=== PATIENT | male | born 1985 | race African-American/Black ===

== ENCOUNTER 2017-04-27 21:35 | Emergency (ER) | payer SELFPAY ==
[2017-04-27 21:51] VITALS: BP 144/85
== END 2017-04-27 23:40 | disposition left against medical advice (07) ==
LOC: ER 21:35
DX: Z53.21 Procedure and treatment not carried out due to patient leaving prior to being seen by health care provider (principal)

== ENCOUNTER 2018-06-29 07:03 | Day surgery (SDC) | payer BC ==
[2018-06-28 09:36] LABS: HEMOGLOBIN 15.2 g/dL (13.5-17.0); MEAN CORPUSCULAR HEMOGLOBIN 32.8 pg (27.0-33.4); MEAN CORPUSCULAR HGB CONC 34.6 g/dL (32.0-36.0); MEAN CORPUSCULAR VOLUME 95 fl (80-97); PLATELET COUNT 253 10^3/uL (150-450); RED BLOOD COUNT 4.64 10^6/uL (4.35-5.55); RED CELL DISTRIBUTION WIDTH 13.1 % (11.5-14.0); WHITE BLOOD COUNT 6.8 10^3/uL (4.0-10.5)
[~2018-06-29 07:03] MED LIST: ACETAMINOPHEN 325 MG TABLET PO PRN; CEFAZOLIN 2 GM/D5W RTU 2 GM/50 ML RTUPB IV PRN; LACTATED RINGERS 1000 ML IV PRN; LIDOCAINE 0.5% INJ-PF (5 MG/ML) 50 ML SDV SUBCUT PRN
[2018-06-29] MEDS ORDERED: BUPIVACAINE HCL 0.25 % INJ/PF (2.5 MG/1 ML) 30 ML VIAL ONE (07:16)
[2018-06-29] MEDS ORDERED: FENTANYL CITRATE INJ/PF 100 MCG/2 ML AMPUL ONE (08:52)
[2018-06-29] MEDS ORDERED: MIDAZOLAM 2 MG/2 ML INJ ONE (08:52)
[2018-06-29] MEDS ORDERED: PROPOFOL INJ 200 MG/20 ML VIAL IV ONE (08:52)
[2018-06-29] MEDS ORDERED: ONDANSETRON HCL INJ/PF 4 MG/2 ML SDV ONE (08:52)
[2018-06-29] MEDS ORDERED: ACETAMINOPHEN 1,000 MG/100 ML RTUPB IV ONE (08:52)
[2018-06-29] MEDS ORDERED: DEXAMETHASONE SOD PHOSPHATE INJ 4 MG/1 ML VIAL ONE (08:52)
[2018-06-29] MEDS ORDERED: HYDROMORPHONE HCL INJ/PF 2 MG/ML AMPULE ONE (08:53)
[2018-06-29] MEDS ORDERED: MORPHINE SULFATE 10 MG/ML INJ IV PRN (09:48)
[2018-06-29] MEDS ORDERED: DIPHENHYDRAMINE HCL 50 MG/ML VIAL IV PRN (09:48)
[2018-06-29] MEDS ORDERED: MEPERIDINE HCL/PF INJ 25 MG/1 ML DISP.SYRIN IV PRN (09:48)
[2018-06-29] MEDS ORDERED: PROMETHAZINE HCL INJ 25 MG/1 ML VIAL IV PRN (09:48)
[2018-06-29] MEDS ORDERED: FENTANYL CITRATE INJ/PF 100 MCG/2 ML AMPUL IV PRN ×3 (09:48)
--- NOTE | 2018-06-29 10:52 | Discharge Summary ---
Discharge Summary (SDC) - Discharge Final Diagnosis: Left indirect inguinal hernia Date of Surgery: 06/29/18 Discharge Date: 06/29/18 Condition: Stable Treatment or Instructions: Discharge home. Diet as tolerated. Activity: No lifting greater than 10 pounds 4 weeks. Follow-up with [facility] in 7-10 days. Okay to shower starting Tuesday. No tub baths or swimming pools 2 weeks. [place] 10/325 mg p.o. every 6 hours as needed pain. Discharge Diet: As Tolerated Respiratory Treatments at Home: Deep Breathing/Coughing, Incentive Spirometer Discharge Activity: No Lifting Over 10 Pounds Home Care Assistance: None Needed Report the Following to Your Physician Immediately: Shortness of Breath, Nausea , Vomiting, Increase in Pain, Fever over 101 Degrees, Unusual Bleeding, Redness , Swelling, Warmth
[2018-06-29] MEDS ORDERED: PROMETHAZINE HCL INJ 25 MG/1 ML VIAL ONE (10:55)
--- NOTE | 2018-06-29 10:57 | Operative Report ---
Nonrecallable Operative Report DATE OF SURGERY: 06/29/18 PREOPERATIVE DIAGNOSIS: Left inguinal hernia POSTOPERATIVE DIAGNOSIS: Left indirect inguinal hernia OPERATION: Robot-assisted laparoscopic left inguinal hernia repair with mesh. SURGEON: CE JUDD ANESTHESIA: GA TISSUE REMOVED OR ALTERED: None COMPLICATIONS: None apparent ESTIMATED BLOOD LOSS: Minimal PROCEDURE: Drains/implants: Large left sided 3D max inguinal hernia mesh. Procedure in detail: After informed consent was obtained, the patient was laid in the supine position in the operating room. The area of the abdomen was prepped and draped in normal sterile fashion. A supraumbilical incision was created with a 15 blade scalpel. Dissection was carried through the subcutaneous tissue using blunt means. The linea alba fascia was incised sharply, the abdomen was entered sharply. The balloon trocar was inserted and pneumoperitoneum was achieved. Next 2 8 mm robotic trochars were placed in the right and left lateral abdominal wall under direct laparoscopic visualization. The robot was then brought over the patient and docked appropriately. I then assumed my position at the surgeon's console. Attention was turned to the left groin. Dissection was begun 2-3 cm superior to the left indirect inguinal hernia defect. The peritoneum was incised and a preperitoneal dissection was undertaken. The hernia sac was freed from the cord structures, taking great care not to injure the cord structures. A large lipoma of the cord was reduced into the abdomen. Once this was completed, a large left-sided 3D max inguinal hernia mesh was placed into the preperitoneal space. It was situated over the defect and sutured to the abdominal wall medially and superiorly with 2-0 Vicryl suture. Once this was completed, the peritoneum was closed using 2-0 V lock suture in simple running fashion. The hernia repair was then inspected. It was found to be in good order. The robot was then undocked and the trochars were removed. Pneumoperitoneum was relieved. Attention was turned to closure of the trocar sites. The supraumbilical fascia was closed using 0 Vicryl suture in [id number] fashion. The overlying skin was closed using 4-0 Vicryl Rapide suture in subcuticular fashion. All sponge, instrument, and needle counts were correct 2. Condition: Stable.
[2018-06-29] MEDS ORDERED: METOCLOPRAMIDE HCL INJ/PF 10 MG/2 ML SDV ONE (11:37)
[2018-06-29] MEDS ORDERED: SCOPOLAMINE HYDROBROMIDE 1.5 MG PATCH.TD72 ONE (11:37)
[2018-06-29 13:56] VITALS: BP 126/71
[2018-06-29] MEDS ORDERED: ROCURONIUM BROMIDE INJ 50 MG/5 ML VIAL IV ONE (15:18)
== END 2018-06-29 14:01 | disposition home or self-care (01) ==
LOC: OROUT 07:03
PROVIDERS: ATTEND Surgery
DX: K40.90 Unilateral inguinal hernia, without obstruction or gangrene, not specified as recurrent (principal)
CPT/HCPCS: 49650; S2900; 36415; 840; 85027; J0131; J0690; J1100; J1170; J2250; J2405; J2550; J2704; J2765; J3010; J3490

== ENCOUNTER 2018-12-08 20:02 | Emergency (ER) | payer OTHER ==
--- NOTE | 2018-12-08 21:52 | RADIOLOGY REPORT (SQ) ---
EXAM DESCRIPTION: XR KNEE 4 OR MORE VIEWS COMPLETED DATE/TME: 12/08/2018 00:00 CLINICAL HISTORY: 33 years, Male, LEFT KNEE PAIN COMPARISON: None. NUMBER OF VIEWS: TECHNIQUE: LIMITATIONS: None. FINDINGS: No fracture or dislocation. There are no definite degenerative changes. There is no significant sized joint effusion. Mineralization of bone appears normal. IMPRESSION: No acute finding. copyright 2010 [employer]- All Rights Reserved
[2018-12-08] MEDS ORDERED: KETOROLAC TROMETHAMINE INJ/PF 30 MG/1 ML SDV IM ONE (23:04)
--- NOTE | 2018-12-08 23:09 | ER Document Report ---
HPI - HPI Time Seen by Provider: 12/08/18 22:41 Pain Level: 5 Notes: Patient is a 33-year-old male no significant past medical history who presents to the emergency department complaining of sharp left knee pain that began over the last 24 hours. Patient states that he was at work when he was lifting something heavy and was bending at the knee when he felt sharp pain in his knee. Patient states that the pain does not radiate and is worse when he is in flexion. He has not noticed any redness, swelling, or bruising. Denies drug allergies. Patient states that in full extension his knee feels "good." Denies IV drug abuse. No other concerns or complaints. Denies any headache, fever,neck pain, URI, sore throat, chest pain, palpitations, syncope, cough, shortness of breath, wheeze, dyspnea, abdominal pain, nausea/vomiting/diarrhea, urinary retention, dysuria, hematuria, loss of control of bowel or bladder, numbness/tingling, saddle anesthesia, muscle paralysis/weakness, or rash. - ROS Systems Reviewed and Negative: Yes All other systems reviewed and negative Past Medical History - Social History Smoking Status: Never Smoker Family History: Reviewed & Not Pertinent - Past Medical History Cardiac Medical History: Denies: Hx Coronary Artery Disease, Hx Heart Attack, Hx Hypertension Pulmonary Medical History: Reports: Hx Asthma Denies: Hx Bronchitis, Hx COPD, Hx Pneumonia Neurological Medical History: Reports: Hx Migraine. Denies: Hx Cerebrovascular Accident, Hx Seizures Renal/ Medical History: Denies: Hx Peritoneal Dialysis Musculoskeletal Medical History: Denies Hx Arthritis - Immunizations Immunizations up to date: Yes Hx Diphtheria, Pertussis, Tetanus Vaccination: Yes Vertical Provider Document - CONSTITUTIONAL Agree With Documented VS: Yes Notes: PHYSICAL EXAMINATION: GENERAL: Well-appearing, well-nourished and in no acute distress. LUNGS: Breath sounds clear to auscultation bilaterally and equal. No wheezes rales or rhonchi. HEART: Regular rate and rhythm without murmurs, rubs, gallops. Musculoskeletal: Lt knee: No obvious swelling, ecchymosis, effusion, or deformity. LROM to passive/active flexion due to pain. No palpable tenderness. Strength 5+/5. N/V intact distal. Ligamentous grossly stable, limited exam with larger leg size. Michael grossly negative, but could not get to full extension to completely evaluate. Patellar grind negative. No calf tenderness. Extremities: No cyanosis, clubbing, or edema b/l. Peripheral pulses 2+. Capillary refill less than 3 seconds. Marifer neg b/l. NEUROLOGICAL: Normal speech, limping gait. Normal sensory, motor exams PSYCH: Normal mood, normal affect. SKIN: Warm, Dry, normal turgor, no rashes or lesions noted. - INFECTION CONTROL TRAVEL OUTSIDE OF THE [place] IN LAST 30 DAYS: No Course - Re-evaluation Re-evalutation: 12/08/18 23:06 Patient is an afebrile, well-hydrated, 33-year-old male who presents to the ED with left knee pain which I suspect to have internal involvement. Vitals are acceptable without any significant tachycardia, tachypnea, or hypoxia. PE is otherwise unremarkable for any neurovascular compromise, obvious tendon/ligament rupture, obvious fracture/dislocation, septic joint. X-ray was unremarkable for any acute pathology. Knee immobilizer and crutches were provided today. Toradol given IM. Patient is nontoxic-appearing. Patient is able to ambulate and weight-bear although he is limping. No other labs or imaging warranted at this time based on H&P. Rx for naproxen. Conservative measures otherwise for symptoms. Recheck with your PCM in 3-5 days. Schedule an appointment with Orthopedics next week. Return to the ED with any worsening/concerning symptoms otherwise as reviewed in discharge. Patient is in agreement. - Vital Signs Vital signs: Temp Pulse Resp BP Pulse Ox 98.4 F 74 18 135/67 H 99 12/08/18 20:42 12/08/18 20:42 12/08/18 20:42 12/08/18 20:42 12/08/18 20:42 Discharge - Discharge Clinical Impression: Left knee pain Qualifiers: Chronicity: acute Qualified Code(s): M25.562 - Pain in left knee Condition: Stable Disposition: HOME, SELF-CARE Instructions: Use of Crutches ([facility]), Ice & Elevation ([facility]), Suspected Internal Knee Injury ([facility]) Additional Instructions: Rest, Ice, Compression, Elevation Use crutches/splint as directed Tylenol/ibuprofen as needed F/u with your PCP in 3-5 days for a recheck Call orthopedics Tuesday to schedule an appointment for further evaluation and management Return to the ED with any worsening symptoms and/or development of fever, headache, chest pain, palpitations, syncope, shortness of breath, trouble breathing, abdominal pain, n/v/d, muscle weakness/paralysis, numbness/tingling, swelling, redness, or other worsening symptoms that are concerning to you. Prescriptions: Naproxen 500 mg PO BID #14 tablet Forms: Elevated Blood Pressure, Return to Work Referrals: [facility] [Provider Group] - Follow up in 3-5 days
[2018-12-08 23:46] VITALS: BP 130/68
== END 2018-12-08 23:46 | disposition home or self-care (01) ==
LOC: ER 20:02
DX: M25.562 Pain in left knee (principal); X50.0XXA Overexertion from strenuous movement or load, initial encounter; Y99.0 Civilian activity done for income or pay
CPT/HCPCS: 99283; 96372; 73564; L1830; J1885